=== PATIENT | female | born 1985 | race Hispanic/Latino ===

== ENCOUNTER 2017-09-25 18:14 | Emergency (ER) | payer SELFPAY ==
[2017-09-25] MEDS ORDERED: traMADol HCl 50 MG TAB ONE (18:39)
--- NOTE | 2017-09-25 19:32 | RAD ---
RIGHT SHOULDER THREE VIEWS: Date: 09-25-17 Comparison: None. History: Right shoulder pain. FINDINGS: There is a small calcific density adjacent to the humeral head superolaterally measuring 6 mm, which may reflect calcific tendinosis. There is no widening of the right AC or CC interspace. No acute frac ture or dislocation. IMPRESSION: Question calcific tendinosis. No acute fracture or dislocation seen. POS: [facility]
== END 2017-09-25 18:50 | disposition home or self-care (01) ==
LOC: ERS 18:14
DX: M25.511 Pain in right shoulder (principal); X50.0XXA Overexertion from strenuous movement or load, initial encounter

== ENCOUNTER 2019-12-25 07:15 | Emergency (ER) | payer SELFPAY ==
[2019-12-25] MEDS ORDERED: Dexamethasone 10 MG/ML VIAL ONE (08:12)
[2019-12-25] MEDS ORDERED: Ketorolac Tromethamine 30 MG/ML VIAL ONE (08:12)
[2019-12-25] MEDS ORDERED: Iopamidol-370 76% 500 ML 1 ML ONE (08:38)
[2019-12-25 09:01] LABS: Hemoglobin 14.1 g/dL (12.0-16.0); Mean Corpuscular HGB CONC 33.1 g/dL (32.0-36.0); Mean Corpuscular Hemoglobin 33.4 pg (27.0-31.0); Mean Platelet Volume 7.5 fL (7.4-10.4); Platelet Count 245 thou/uL (130-400); RBC Distribution Width 10.9 % (11.5-14.5); Red Blood Cell (RBC) Count 4.24 mill/uL (4.20-5.40); White Blood Cell (WBC) Count 23.3 thou/uL (4.8-10.8)
[2019-12-25 09:26] LABS: Band 18 % (5-11); Lymphocytes 12 % (21-51); MDiff Complete? YES; Monocytes 6 % (0-10); Neutrophil 63 % (42-75); RBC Morphology Normal
[2019-12-25 09:28] LABS: ALT (SGPT) 13 U/L (8-55); AST (SGOT) 22 U/L (5-34); Albumin 4.2 g/dL (3.5-5.0); Alkaline Phosphatase 70 U/L (40-110); Anion Gap 16 mmol/L (10-20); BUN (Urea Nitrogen) 10 mg/dL (7.0-18.7); Bilirubin, Total 0.7 mg/dL (0.2-1.2); Calc. Creatinine Clearance 0 mL/min (70-130); Calcium 9.1 mg/dL (7.8-10.44); Carbon Dioxide 17 mmol/L (22-29); Chloride 105 mmol/L (98-107); Estimated GFR-MDRD Greater than 90; Globulin 3.8 g/dL (2.4-3.5); Glucose 98 mg/dL (70-105); Sodium 134 mmol/L (136-145)
--- NOTE | 2019-12-25 10:13 | CT ---
CT OF THE SOFT TISSUES OF THE NECK WITH IV CONTRAST: INDICATION: History of throat pain radiating to the ears. COMPARISON: None. FINDINGS: There is heterogeneous enhancement and hypertrophy of the palatine tonsils. There is slightly promin ence of the lingual tonsils. The aerodigestive tract remains patent. No peritonsillar fluid collect ion is evident. No retropharyngeal fluid collection is grossly evident. There are mildly prominent lymph nodes within the level II position which are likely reactive. The largest is seen on the right level II position measuring 1.5 cm. Lung apices are clear. The visualized thyroid, submandibular a nd parotid glands are normal-appearing. The visualized intracranial contents reveal no definite acut e abnormality. Visualized paranasal sinuses reveal no air fluid levels. There is mild mucosal thick ening in the right ethmoid air cells. Mastoid air cells are clear. No definite acute osseous abnorm ality is evident. There is mild cervical spondylosis. IMPRESSION: 1. [place] and lingual tonsillitis without evidence of a drainable fluid collection. 2. Prominent upper cervical lymphadenopathy likely reactive in nature. Recommend clinical followup. POS: [facility]
== END 2019-12-25 10:00 | disposition home or self-care (01) ==
LOC: ERS 07:15
DX: J03.90 Acute tonsillitis, unspecified (principal)
CPT/HCPCS: 70491; 80053; 85025; 87081; 87430; 96361; 96374; 96375; J1100; J1885; Q9967

== ENCOUNTER 2020-01-03 18:24 | Emergency (ER) | payer SELFPAY ==
[2020-01-03 18:58] LABS: Bacteria/HPF None Seen HPF (None Seen); Bilirubin Negative (Negative); Blood, Urine 3+ (Negative); Clarity Clear (Clear); Glucose, Urine (Dipstick) Normal (Negative); Ketone, Urine Negative (Negative); Leukocyte 25 Leu/uL (Negative); Nitrite Negative (Negative); Protein, Urine (Dipstick) 10 mg/dL (Neg-Trace); Specific Gravity, Urine 1.018 (1.002-1.036); Urobilinogen Normal mg/dL (Less than 2); pH, Urine 6.5 (5.0-9.0)
== END 2020-01-03 20:27 | disposition home or self-care (01) ==
LOC: ERS 18:24
DX: R30.0 Dysuria (principal); L53.9 Erythematous condition, unspecified
CPT/HCPCS: 81003; 81015; 99283

== ENCOUNTER 2022-03-26 00:28 | Emergency (ER) | payer SELFPAY ==
[2022-03-26 01:34] LABS: #Eosinphils 0.2 thou/uL (0.0-0.7); #Monocytes 0.8 thou/uL (0.11-0.59); #Neutrophils 9.2 thou/uL (1.40-6.50); %Basophils 0.1 % (0.0-1.0); %Eosinophils 1.3 % (0.0-10.0); %Lymphocytes 16.5 % (21.0-51.0); %Monocytes 6.5 % (0.0-10.0); %Neutrophils 75.5 % (42.0-75.0); Mean Corpuscular HGB CONC 33.6 g/dL (32.0-36.0); Mean Corpuscular Hemoglobin 33.6 pg (27.0-31.0); Mean Corpuscular Volume 99.9 fl (78.0-98.0); Mean Platelet Volume 7.1 fL (7.4-10.4); Platelet Count 339 10x3/uL (130-400); RBC Distribution Width 11.5 % (11.5-14.5); Red Blood Cell (RBC) Count 4.16 mill/uL (4.20-5.40); White Blood Cell (WBC) Count 12.2 10x3/uL (4.8-10.8)
[2022-03-26 01:39] LABS: BHCG - Serum POSITIVE (NEGATIVE); Pregs Control Background? CLEAR/WHITE (CLR/WHITE); Pregs Control Bar Appear? YES (CONTROL BAR)
[2022-03-26 01:45] LABS: Bilirubin 1+ (Negative); Blood, Urine Negative (Negative); Clarity Turbid (Clear); Glucose, Urine (Dipstick) Normal (Negative); Ketone, Urine Trace mg/dL (Negative); Leukocyte 75 Leu/uL (Negative); Nitrite Negative (Negative); Protein, Urine (Dipstick) 70 mg/dL (Neg-Trace); Specific Gravity, Urine 1.035 (1.002-1.036); Urobilinogen 6 mg/dL (Less than 2); pH, Urine 6.5 (5.0-9.0)
[2022-03-26 01:53] LABS: ALT (SGPT) 41 U/L (8-55); AST (SGOT) 47 U/L (5-34); Albumin 4.2 g/dL (3.5-5.0); Alkaline Phosphatase 65 U/L (40-110); Anion Gap 11 mmol/L (10-20); BUN (Urea Nitrogen) 9 mg/dL (7.0-18.7); Bilirubin, Total 0.7 mg/dL (0.2-1.2); Calc. Creatinine Clearance 0 mL/min (70-130); Calcium 9.3 mg/dL (7.8-10.44); Carbon Dioxide 22 mmol/L (22-29); Chloride 107 mmol/L (98-107); Estimated GFR 113; Globulin 3.5 g/dL (2.4-3.5); Glucose 100 mg/dL (70-105); Lipase 27 U/L (8-78); Potassium 4.1 mmol/L (3.5-5.1); Protein, Total 7.7 g/dL (6.0-8.3); Sodium 136 mmol/L (136-145)
[2022-03-26 02:03] LABS: RBC/HPF 0-3 HPF (0-3); WBC/HPF 0-3 HPF (0-3)
[2022-03-26 02:04] LABS: Bacteria/HPF 2+ HPF (None Seen); Calcium Oxalate Crystals 1+ HPF (None Seen)
== END 2022-03-26 04:35 | disposition home or self-care (01) ==
LOC: ERS 00:28
DX: O99.611 Diseases of the digestive system complicating pregnancy, first trimester (principal); D72.829 Elevated white blood cell count, unspecified; Z3A.01 Less than 8 weeks gestation of pregnancy
CPT/HCPCS: 36415; 76705; 80053; 81003; 81015; 83690; 84702; 84703; 85025